=== PATIENT | female | born 1980 | race Caucasian/White ===

== ENCOUNTER 2020-07-04 11:59 | Emergency (ER) | payer MEDICAID ==
[~2020-07-04] VITALS: Ht 170.2 cm; Wt 81.6 kg
[2020-07-04 12:01] VITALS: BP 138/87; Ht 170.2 cm; Wt 81.6 kg
== END 2020-07-04 13:00 | disposition home or self-care (01) ==
LOC: ED 11:59
DX: R05 Cough (principal); R06.02 Shortness of breath; R51.9 Headache, unspecified; E03.9 Hypothyroidism, unspecified